=== PATIENT | male | born 1965 ===

== ENCOUNTER 2017-10-27 12:10 | Emergency (ER) | payer OTHER ==
[2017-10-27 12:10] VITALS: BMI 35.4
[2017-10-27] MEDS ORDERED: Sodium Chloride 0.9% 1,000 ML IV STA ×2 (12:28→14:26)
--- NOTE | 2017-10-27 12:33 | ED PDOC ---
Arrival/HPI - General Chief Complaint: Dizziness/Lightheaded Time Seen by Provider: 10/27/17 12:24 Historian: Patient - History of Present Illness Narrative History of Present Illness (Text): 10/27/17 12:30 A 52 year old male, whose past medical history includes hypertension, pancreatitis, diabetes type 2, gout, colitis, rheumatoid arthritis, and renal failure, presents to the emergency department complaining of multiple episodes of non-bilious, non-bloody vomiting since 04:00. Patient reports also experiencing dizziness for the past week. Patient denies any diarrhea, abdominal pain, chest pain, shortness of breath, cough or any other complaints at this time. Also, patient denies any sick contacts at home. PMD: Dr. Alex Ribeiro Past Medical History - Provider Review Nursing Documentation Reviewed: Yes - Tetanus Immunization Tetanus Immunization: Unknown - Cardiac Hx Hypertension: Yes - Pulmonary Hx Respiratory Disorders: No - Neurological Hx Neurological Disorder: Yes Hx Vertigo: Yes - HEENT Hx HEENT Disorder: No - Renal Hx Renal Disorder: Yes Hx Renal Failure: Yes - Endocrine/Metabolic Hx Diabetes Mellitus Type 2: Yes (PRE DM) - Hematological/Oncological Hx Blood Transfusions: No Hx Blood Transfusion Reaction: No - Integumentary Hx Dermatological Disorder: No - Musculoskeletal/Rheumatological Hx Musculoskeletal Disorders: Yes Hx Gout: Yes Hx Rheumatoid Arthritis: Yes - Gastrointestinal Hx Gastrointestinal Disorders: No Hx Colitis: Yes (multiple hospital admissions txt with abx) Other/Comment: colitis - Genitourinary/Gynecological Hx Prostate Problems: Yes (tamsulosin for BPH) - Psychiatric Hx Psychophysiologic Disorder: No Hx Emotional Abuse: No Hx Physical Abuse: No Hx Substance Use: No - Surgical History Hx Orthopedic Surgery: Yes (bilateral knee arthroscopy) - Anesthesia Hx Anesthesia Reactions: No Hx Malignant Hyperthermia: No - Suicidal Assessment Feels Threatened In Home Enviroment: No Family/Social History - Physician Review Nursing Documentation Reviewed: Yes Family/Social History: No Known Family HX Smoking Status: Never Smoked Hx Alcohol Use: No Hx Substance Use: No Hx Substance Use Treatment: No Allergies/Home Meds Allergies/Adverse Reactions: Allergies No Known Allergies Allergy (Verified 10/27/17 12:13) Home Medications: Home Meds Medication Instructions Recorded Confirmed Allopurinol [Zyloprim] 300 mg PO QAM 01/01/16 10/27/17 Amlodipine Besylate [Norvasc] 10 mg PO QAM 01/01/16 10/27/17 Lisinopril [Zestril] 20 mg PO QAM 01/01/16 10/27/17 Prednisone 10 mg PO PRN PRN 01/01/16 10/27/17 Tamsulosin HCl [Flomax] 0.4 mg PO DAILY 01/01/16 10/27/17 Omeprazole [Prilosec] 40 mg PO DAILY 01/02/16 10/27/17 Review of Systems - Physician Review All systems were reviewed & negative as marked: Yes - Review of Systems Respiratory: absent: SOB, Cough Cardiovascular: absent: Chest Pain Gastrointestinal: Vomiting (multiple episodes of vomiting, non-bilious, non- bloody). absent: Abdominal Pain, Diarrhea Neurological: Dizziness (for the past week) Physical Exam Vital Signs Reviewed: Yes Vital Signs Temp Pulse Resp BP Pulse Ox 10/27/17 14:49 98 F 91 H 18 129/84 95 10/27/17 12:15 98.1 F 102 H 16 132/89 97 Temperature: Afebrile Blood Pressure: Normal Pulse: Regular Respiratory Rate: Normal Appearance: Positive for: Well-Appearing, Other (slgihtly dehydrated) Pain Distress: None Mental Status: Positive for: Alert and Oriented X 3 - Systems Exam Head: Present: Atraumatic, Normocephalic Pupils: Present: PERRL Extroacular Muscles: Present: EOMI Conjunctiva: Present: Normal Mouth: Present: Moist Mucous Membranes Neck: Present: Normal Range of Motion Respiratory/Chest: Present: Clear to Auscultation, Good Air Exchange. No: Respiratory Distress, Accessory Muscle Use Cardiovascular: Present: Regular Rate and Rhythm, Normal S1, S2. No: Murmurs Abdomen: Present: Normal Bowel Sounds. No: Tenderness, Distention, Peritoneal Signs Back: Present: Normal Inspection Upper Extremity: Present: Normal Inspection. No: Cyanosis, Edema Lower Extremity: Present: Normal Inspection. No: Edema Neurological: Present: GCS=15, CN II-XII Intact, Speech Normal Skin: Present: Warm, Dry, Normal Color. No: Rashes Psychiatric: Present: Alert, Oriented x 3, Normal Insight, Normal Concentration Medical Decision Making ED Course and Treatment: 10/27/17 12:35 Impression: 52 year old male with multiple episodes of vomiting. Physical exam is benign. Plan: -- Labs -- Zofran -- IV Fluids -- Reassess and disposition Prior Visits: Notes and results from previous visits were reviewed. Patient was last seen in the emergency department on 06/14/2015 for dizziness. Patient was admitted. Progress Notes: Reassessment Condition: Re-examined, Improved - Lab Interpretations Narrative Lab Interpretation (Text): 10/27/17 14:22 severe hypomagensemia will give 2gm Mag iv. PO challenge. Lab Results: 10/27/17 12:55 10/27/17 12:55 Lab Results 10/27/17 12:58: POC Glucose (mg/dL) 132 H 10/27/17 12:55: Sodium 140, Potassium 4.2, Chloride 104, Carbon Dioxide 24, Anion Gap 17, BUN 21, Creatinine 1.5, Est GFR ( Amer) 59, Est GFR (Non- Af Amer) 49, Random Glucose 135 H, Calcium 9.7, Magnesium 1.0 L*, Total Bilirubin 0.8, AST 38, ALT 57 H, Alkaline Phosphatase 96, Troponin I < 0.01, Total Protein 8.3, Albumin 4.5, Globulin 3.8, Albumin/Globulin Ratio 1.2 10/27/17 12:55: WBC 9.6 D, RBC 4.69, Hgb 14.2, Hct 41.3 L, MCV 88.1, MCH 30.3, MCHC 34.4, RDW 14.1, Plt Count 202, MPV 10.7, Gran % 84.5 H, Lymph % (Auto) 12.2 L, [place] % (Auto) 2.6, Eos % (Auto) 0.2 L, Baso % (Auto) 0.5, Gran # 8.12 H , Lymph # 1.2, [place] # 0.3, Eos # 0.0, Baso # 0.05 I have reviewed the lab results: Yes - Medication Orders Current Medication Orders: Sodium Chloride (Sodium Chloride 0.9%) 1,000 mls @ 999 mls/hr IV .Q1H1M STA Stop: 10/27/17 15:26 Last Admin: 10/27/17 14:45 Dose: 999 mls/hr eMAR Start Stop Document 10/27/17 14:45 LA (Rec: 10/27/17 14:45 LA [facility] [id number]) Intravenous Solution Start Date 10/27/17 Start Time 14:45 Discontinued Medications Sodium Chloride (Sodium Chloride 0.9%) 1,000 mls @ 999 mls/hr IV .Q1H1M STA Stop: 10/27/17 13:28 Last Admin: 10/27/17 12:42 Dose: 999 mls/hr eMAR Start Stop Document 10/27/17 12:42 LA (Rec: 10/27/17 12:42 LA [facility] [id number]) Intravenous Solution Start Date 10/27/17 Start Time 12:42 Magnesium Sulfate 2 gm/ Sodium (Chloride) 104 mls @ 102 mls/hr IVPB ONCE ONE Stop: 10/27/17 14:59 Last Admin: 10/27/17 14:09 Dose: 102 mls/hr eMAR Start Stop Document 10/27/17 14:09 LA (Rec: 10/27/17 14:19 LA [facility] [id number]) Intravenous Solution Start Date 10/27/17 Start Time 14:18 Meclizine HCl (Antivert) 25 mg PO STAT STA Stop: 10/27/17 14:27 Last Admin: 10/27/17 14:46 Dose: 25 mg Ondansetron HCl (Zofran Inj) 4 mg IVP STAT STA Stop: 10/27/17 12:29 Last Admin: 10/27/17 12:42 Dose: 4 mg IVP Administration Document 10/27/17 12:42 LA (Rec: 10/27/17 12:42 LA [facility] [id number]) Charges for Administration # of IVP Administrations 1 - Scribe Statement The provider has reviewed the documentation as recorded by the Staci Middleton Provider Scribe Attestation: All medical record entries made by the Scribdwaine were at my direction and personally dictated by me. I have reviewed the chart and agree that the record accurately reflects my personal performance of the history, physical exam, medical decision making, and the department course for this patient. I have also personally directed, reviewed, and agree with the discharge instructions and disposition. Disposition/Present on Arrival - Present on Arrival Any Indicators Present on Arrival: No History of DVT/PE: No History of Uncontrolled Diabetes: No Urinary Catheter: No History of Decub. Ulcer: No History Surgical Site Infection Following: None - Disposition Have Diagnosis and Disposition been Completed?: Yes Diagnosis: Gastroenteritis and colitis, viral, Hypomagnesemia, Dehydration Disposition: HOME/ ROUTINE Disposition Time: 16:00 Patient Plan: Discharge Patient Problems: Current Active Problems Problem Status Onset Dehydration Acute Gastroenteritis and colitis, viral Acute Hypomagnesemia Acute Condition: IMPROVED Prescriptions: Magnesium Oxide [Mag-Ox] 400 mg PO BID #8 tab Ondansetron [Zofran] 4 mg PO Q8H PRN #12 tab PRN Reason: Nausea/Vomiting Referrals: Alex Ribeiro MD [Primary Care Provider] - Follow up with primary Forms: [employer] ([place]andan)
[2017-10-27 13:08] LABS: BASO # 0.05 K/mm3 (0.0-2.0); BASO % 0.5 % (0.0-3.0); EOS % 0.2 % (1.5-5.0); GRAN # 8.12 (1.4-6.5); GRAN % 84.5 % (50.0-68.0); HEMATOCRIT 41.3 % (42.0-52.0); LYMPH # 1.2 (1.2-3.4); LYMPH % 12.2 % (22.0-35.0); MEAN CELL VOLUME 88.1 fl (80.0-105.0); MEAN CORPUSCULAR HEMOGLOBIN 30.3 pg (25.0-35.0); MEAN CORPUSCULAR HGB CONC 34.4 g/dl (31.0-37.0); MEAN PLATELET VOLUME 10.7 fl (7.0-11.0); MONO # 0.3 (0.1-0.6); MONO % 2.6 % (1.0-6.0); RED CELL DISTRIBUTION WIDTH 14.1 % (11.5-14.5); WHITE BLOOD COUNT 9.6 10^3/ul (4.5-11.0)
[2017-10-27 13:25] LABS: TROPONIN I < 0.01 ng/mL
[2017-10-27 13:55] LABS: ALB/GLOB RATIO 1.2 (1.1-1.8); ALKALINE PHOSPHATASE 96 U/L (38-126); ALT/SGPT 57 U/L (7-56); AST/SGOT 38 U/L (17-59); BILIRUBIN,TOTAL 0.8 mg/dL (0.2-1.3); BLOOD UREA NITROGEN 21 mg/dL (7-21); CALCIUM 9.7 mg/dL (8.4-10.5); CARBON DIOXIDE 24 mmol/L (21-33); CHLORIDE 104 mmol/L (98-107); GFR AFRICAN-AMERICAN 59; GLUCOSE,RANDOM 135 mg/dL (70-110); POTASSIUM 4.2 mmol/L (3.6-5.0); SODIUM 140 mmol/L (132-148); TOTAL PROTEIN 8.3 g/dL (5.8-8.3)
[2017-10-27] MEDS ORDERED: Magnesium Sulfate 2 GM in Sodium Chloride 0.9% 100 ML IVPB ONE (13:58)
[2017-10-27 14:50] VITALS: BP 129/84; PULSE 91; RESP 18; TEMP 98; O2SAT 95
--- NOTE | 2017-10-27 17:38 | CARD ---
APPROVED REPORT EKG Measurement Heart [id number] <Conclusion> Normal sinus rhythm Normal ECG
== END 2017-10-27 15:44 | disposition home or self-care (01) ==
LOC: ED 12:10
DX: A08.4 Viral intestinal infection, unspecified (principal); E83.42 Hypomagnesemia; E86.0 Dehydration; E11.9 Type 2 diabetes mellitus without complications; I10 Essential (primary) hypertension; M06.9 Rheumatoid arthritis, unspecified
CPT/HCPCS: 80053; 82948; 83735; 84484; 85025; 93005; 96374; 99285; J2405; J3475; J7040